=== PATIENT | male | born 1945 | race Caucasian/White ===

== ENCOUNTER 2018-03-14 11:22 | Emergency (ER) | payer MEDICARE, OTHER ==
[2018-03-14 11:24] VITALS: BMI 24.3
[2018-03-14] MEDS ORDERED: Labetalol 5 mg/ml Inj 20ML IV STA (11:29)
[2018-03-14] MEDS ORDERED: Sodium Chloride 0.9% 1,000 ML IV STA (11:40)
--- NOTE | 2018-03-14 11:52 | ED PDOC ---
Arrival/HPI - General Historian: Patient <Narendra Jaramillo - Last Filed: 03/14/18 15:36> - General Historian: Patient, Spouse - History of Present Illness Narrative History of Present Illness (Text): This is a 73 year old male with PMH of HTN, Afib on eliquis, vertigo, hyperthyroidism with thyrotoxicosis in the past, IDDM, who presents with a 3 hour history of dizziness and headache, associated with blurry vision in the right eye. Pt describes dizziness as the room spinning which started this morning as well. Pt's blood pressure measured to be 217 SBP at home, as per . gave him his daily medications, but his dizziness caused him to have one episode of nonbloody nonbilious vomiting at around 9 am. Pt's headache was gradual onset, 2-3/10, dull, nonradiating and located in the front of his head. Pt denies fever, chills, chest pain, sob, palpitations, abdominal pain, d, numbness or tingling, focal weakness, lightheadedness. PMD: Daniel Aj Cardio: Nancie Aj PMH: HTN, Afib on eliquis, CAD with 1 stent, vertigo, hyperthyroidism with thyrotoxicosis in the past, IDDM PSH: 2005 c4-6 disc fusion, 2013 stent Meds: see mar Allx: Celecoxib Time/Duration: 1-3 hours Symptom Onset: Gradual Quality: Dullness Severity Level: 3 <SagarChuy - Last Filed: 03/14/18 20:33> - General Chief Complaint: Dizziness/Lightheaded Time Seen by Provider: 03/14/18 11:24 Past Medical History - Provider Review Nursing Documentation Reviewed: Yes - Tetanus Immunization Tetanus Immunization: Unknown - Cardiac Hx Cardiac Disorders: Yes Hx Hypertension: Yes - Pulmonary Hx Respiratory Disorders: Yes Hx Asthma: No Hx Bronchitis: Yes Hx Chronic Obstructive Pulmonary Disease (COPD): Yes Hx Emphysema: Yes Hx Lung Cancer: No Hx Pneumonia: No Hx Pulmonary Edema: No Hx Pulmonary Embolism: No Hx Respiratory Aspiration: No Hx Respiratory Tract Infection: Yes Hx Sleep Apnea: Yes Hx Tuberculosis: No Other/Comment: quit smoking 30 years ago - Neurological Hx Neurological Disorder: Yes Hx Dizziness: Yes Hx Vertigo: Yes Other/Comment: lower extremity stiffness/weakness - HEENT Hx HEENT Disorder: Yes Hx Cataracts: Yes (RIGHT EYE) - Renal Hx Renal Disorder: Yes Hx Kidney Stones: Yes - Endocrine/Metabolic Hx Diabetes Mellitus Type 2: Yes - Hematological/Oncological Hx Blood Disorders: No - Integumentary Hx Dermatological Disorder: No - Musculoskeletal/Rheumatological Hx Arthritis: Yes - Gastrointestinal Hx Gastrointestinal Disorders: No - Genitourinary/Gynecological Hx Genitourinary Disorders: No - Psychiatric Hx Psychophysiologic Disorder: No Hx Substance Use: No - Surgical History Hx Coronary Stent: Yes - Anesthesia Hx Anesthesia: Yes Hx Anesthesia Reactions: No Hx Malignant Hyperthermia: No - Suicidal Assessment Feels Threatened In Home Enviroment: No <Chuy Keith - Last Filed: 03/14/18 20:33> Family/Social History - Physician Review Nursing Documentation Reviewed: Yes Family/Social History: Unknown Family HX Smoking Status: Former Smoker Hx Alcohol Use: No Hx Substance Use: No <Chuy Keith - Last Filed: 03/14/18 20:33> Allergies/Home Meds <Narendra Jaramillo - Last Filed: 03/14/18 15:36> <Chuy Keith - Last Filed: 03/14/18 20:33> Allergies/Adverse Reactions: Allergies celecoxib [From Celebrex] Allergy (Verified 03/14/18 15:11) RASH Review of Systems - Physician Review All systems were reviewed & negative as marked: Yes <Narendra Jaramillo - Last Filed: 03/14/18 15:36> - Physician Review All systems were reviewed & negative as marked: Yes - Review of Systems Constitutional: Fatigue Eyes: Vision Changes (as per HPI) ENT: Normal Respiratory: Normal Cardiovascular: Normal Gastrointestinal: Vomiting Neurological: Headache, Dizziness. absent: Focal Weakness, Speech Changes, Facial Droop Psychiatric: Normal <Chuy Keith - Last Filed: 03/14/18 20:33> Physical Exam Vital Signs Reviewed: Yes Vital Signs Temp Pulse Pulse Resp BP Pulse Ox 03/14/18 13:41 98.0 F 73 18 99 03/14/18 12:45 74 15 122/62 97 03/14/18 12:14 71 20 163/80 H 97 03/14/18 12:13 72 183/70 H 03/14/18 11:47 66 03/14/18 11:28 97.7 F 68 17 193/93 H 98 <Narendra Jaramillo - Last Filed: 03/14/18 15:36> Vital Signs Reviewed: Yes Vital Signs Temp Pulse Resp BP Pulse Ox 03/14/18 11:28 97.7 F 68 17 193/93 H 98 Temperature: Afebrile Blood Pressure: Hypertensive Pulse: Regular Respiratory Rate: Normal Appearance: Positive for: Non-Toxic, Comfortable Pain Distress: Mild Mental Status: Positive for: Alert and Oriented X 3 - Systems Exam Head: Present: Atraumatic, Normocephalic Pupils: Present: PERRL Extroacular Muscles: Present: EOMI Conjunctiva: Present: Normal Mouth: Present: Moist Mucous Membranes Neck: Present: Paraspinal Tenderness (around c7, bilaterally. (+) bilateral trapezius tenderness). No: Normal Range of Motion (limited ROM secondary to cervical disc fusion surgery), MIDLINE TENDERNESS Respiratory/Chest: Present: Clear to Auscultation. No: Wheezes, Rales, Rhonchi, Tachypneic Cardiovascular: Present: Normal S1, S2, Irregular Rhythm Abdomen: Present: Normal Bowel Sounds. No: Tenderness, Distention, Rebound, Guarding Back: Present: Normal Inspection Upper Extremity: Present: Normal Inspection, NORMAL PULSES Lower Extremity: Present: Normal Inspection, NORMAL PULSES. No: Edema, CALF TENDERNESS Neurological: Present: GCS=15, CN II-XII Intact, Motor Func Grossly Intact Skin: Present: Warm, Dry Psychiatric: Present: Alert, Oriented x 3 <Chuy Keith - Last Filed: 03/14/18 20:33> Medical Decision Making ED Course and Treatment: Patient Seen with Resident: In agreement with resident note which contains more details about the patient. Patient seen and evaluated with resident. Came up with plan and treatment together. 73 year old male presents complaining of dizziness and headache associated with blurry vision to the right eye for the past 3 hours. Plan: -- VBG -- CT Head w/o contrast -- EKG -- Labs -- IV Fluids, Ativert, Apresoline, IV Fluids, Toradol, Zofran Inj -- Reassess and disposition - Lab Interpretations Lab Results: 03/14/18 11:45 03/14/18 11:45 Lab Results 03/14/18 11:45: PT 12.8 H, INR 1.11, APTT 39.0 H 03/14/18 11:45: Free T4 1.06, TSH 3rd Generation 2.37 03/14/18 11:45: Sodium 137, Chloride 102, Potassium 3.9, Carbon Dioxide 28, Anion Gap 12, BUN 17, Creatinine 0.8, Est GFR ( Amer) > 60, Est GFR (Non- Af Amer) > 60, Random Glucose 201 H, Calcium 9.0, Magnesium 2.0, Total Bilirubin 0.4, AST 28, ALT 29, Alkaline Phosphatase 104, Troponin I < 0.01 D, Total Protein 7.3, Albumin 4.1, Globulin 3.2, Albumin/Globulin Ratio 1.3 03/14/18 11:45: pO2 67 H, VBG pH 7.36, VBG pCO2 51.0, VBG HCO3 28.8 H, VBG Total CO2 30.4 H, VBG O2 Sat (Calc) 94.4 H, VBG Base Excess 2.4 H, VBG Potassium 3.9, Sodium 136.0, Chloride 101.0, Glucose 210 H, Lactate 0.8, FiO2 21.0, Venous Blood Potassium 3.9 03/14/18 11:45: WBC 7.7, RBC 3.99, Hgb 12.0 L, Hct 36.9 L, MCV 92.5, MCH 30.1, MCHC 32.5, RDW 13.3, Plt Count 315, MPV 10.6, Gran % 73.0 H, Lymph % (Auto) 18.8 L, [place] % (Auto) 6.2 H, Eos % (Auto) 1.4 L, Baso % (Auto) 0.6, Gran # 5.63, Lymph # (Auto) 1.5, [place] # (Auto) 0.5, Eos # (Auto) 0.1, Baso # (Auto) 0.05 - RAD Interpretation Radiology Orders: 03/14/18 11:40 HEAD W/O CONTRAST [CT] Stat - Medication Orders Current Medication Orders: Discontinued Medications Hydralazine HCl (Apresoline) 10 mg IVP ONCE ONE Stop: 03/14/18 12:00 Last Admin: 03/14/18 12:13 Dose: 10 mg IVP Administration Document 03/14/18 12:13 [email or web address] (Rec: 03/14/18 12:13 [facility] [id number]) Charges for Administration # of IVP Administrations 1 MAR Pulse and Blood Pressure Document 03/14/18 12:13 [email or web address] (Rec: 03/14/18 12:13 [facility] [id number]) Pulse Pulse Rate (60-90) 72 Blood Pressure Blood Pressure (100/60-150/90) 183/70 Ketorolac Tromethamine (Toradol) 30 mg IVP STAT STA Stop: 03/14/18 12:44 Ketorolac Tromethamine (Toradol) 30 mg IVP ONCE ONE Stop: 03/14/18 13:01 Last Admin: 03/14/18 13:01 Dose: 30 mg MAR Pain Assessment Document 03/14/18 13:01 [facility] (Rec: 03/14/18 13:01 [facility] [id number]) Pain Reassessment Is this a pain reassessment? No Sleep Is patient sleeping during reassessment? No Presence of Pain Presence of Pain Yes Pain Scale Used Protocol: PSCALES Pain Scale Used Numeric Location Pain Location Body Site Neck Description Description Constant Intensity of Pain at present 6 Pain Behavior Facial Grimacing Aggravating Factors Changing Position Alleviating Factors/Management Medication Techniques Alleviating Factors Medication IVP Administration Document 03/14/18 13:01 [facility] (Rec: 03/14/18 13:[id number]) Charges for Administration # of IVP Administrations 1 Meclizine HCl (Antivert) 12.5 mg PO STAT STA Stop: 03/14/18 11:41 Last Admin: 03/14/18 11:54 Dose: 12.5 mg Ondansetron HCl (Zofran Inj) 4 mg IVP ONCE ONE Stop: 03/14/18 11:30 Last Admin: 03/14/18 11:55 Dose: 4 mg IVP Administration Document 03/14/18 11:55 [facility] (Rec: 03/14/18 11:55 [facility] [id number]) Charges for Administration # of IVP Administrations 1 <Narendra Jaramillo - Last Filed: 03/14/18 15:36> ED Course and Treatment: Hypertensive male on eliquis for Afib with complaints of dizziness, n/v, headache and blurry vision. Will treat BP with hydralazine. Pt has history of vertigo, will give Meclizine. Zofran for nausea. CBC, CMP, Mag, Phos, PT/PTT/INR, Head CT, EKG, troponin, TSH/T4. Will re-eval. 03/14/18 12:29 Pt complaining of neck pain, which he has been dealing with for the past 3 days. 7/10, nonradiating, sharp, located in the bilateral trapezius. Usually relieved by pinching the muscle with his hands. Headache has improved, blurry vision has resolved. Denies nausea. No episodes of vomiting in the ED so far. Repeat BP 163/80, not tachycardic or tachypneic. 03/14/18 13:37 Repeat BP is 122/62. Not tachycardic. Dizziness, blurry vision, nausea are resolved. Neck pain is improved. Re-evaluation Time: 13:20 Reassessment Condition: Re-examined, Improved - Lab Interpretations I have reviewed the lab results: Yes - RAD Interpretation Narrative RAD Interpretations (Text): 03/14/18 12:19 Accession No. : [id number] Patient Name / ID : FREDA YOON / [id number] Exam Date : 03/14/2018 11:58:58 ( Approved ) Study Comment : Sex / Age : M / 73Y Creator : Rishi Carpenter MD Dictator : Rishi Carpenter MD Mathematics Lecturer : Visual Coordinator : Rishi Carpenter MD Approver2 : Report Date : 03/14/2018 12:11:16 My Comment : Date of service: 03/14/2018 PROCEDURE: CT HEAD WITHOUT CONTRAST. HISTORY: headache COMPARISON: None available. TECHNIQUE: Axial computed tomography images were obtained through the head/brain without intravenous contrast. Radiation dose: Total exam DLP = 942.9 mGy-cm. This CT exam was performed using one or more of the following dose reduction techniques: Automated exposure control, adjustment of the mA and/or kV according to patient size, and/or use of iterative reconstruction technique. FINDINGS: HEMORRHAGE: No intracranial hemorrhage. BRAIN: Good corticomedullary differentiation is seen. Proportional, diffuse expansion of the ventriculosulcal and cisternal spaces is appreciated with white matter lucency compatible with diffuse cerebral atrophy and chronic microangiopathy. There are a few scattered chronic lacunes identified including the right frontal lobe and left basal ganglia/external capsule. No suspicious extra-axial fluid collection is identified and the midline brain anatomy appears grossly nonfocal as imaged. There is no mass effect throughout. VENTRICLES: Unremarkable. No hydrocephalus. CALVARIUM: Unremarkable. PARANASAL SINUSES: Unremarkable as visualized. No significant inflammatory changes. MASTOID AIR CELLS: Unremarkable as visualized. No inflammatory changes. OTHER FINDINGS: None. IMPRESSION: No definite acute intracranial findings by standard CT criteria. Clinically correlate further. Age related neuro degenerative findings appear age- appropriate. A few chronic lacunes are identified. Radiology Orders: 03/14/18 11:40 HEAD W/O CONTRAST [CT] Stat [employer] Ch[employer] Director: Radiologist - EKG Interpretation EKG Interpretation (Text): EKG shows NSR at 68 no acute STTW changes; AZ is 166, QTc is 431; as read by ED attending Interpreted by ED Physician: Yes - Medication Orders Current Medication Orders: Sodium Chloride (Sodium Chloride 0.9%) 1,000 mls @ 999 mls/hr IV .Q1H1M STA Stop: 03/14/18 12:40 Discontinued Medications Meclizine HCl (Antivert) 12.5 mg PO STAT STA Stop: 03/14/18 11:41 Ondansetron HCl (Zofran Inj) 4 mg IVP ONCE ONE Stop: 03/14/18 11:30 <Chuy Keith - Last Filed: 03/14/18 20:33> - PA / FLORIST DESIGNER / Resident Statement MD/DO has reviewed & agrees with the documentation as recorded. - Scribe Statement The provider has reviewed the documentation as recorded by the Jose Martin Provider Scribe Attestation: All medical record entries made by the Jose were at my direction and personally dictated by me. I have reviewed the chart and agree that the record accurately reflects my personal performance of the history, physical exam, medical decision making, and the department course for this patient. I have also personally directed, reviewed, and agree with the discharge instructions and disposition. <Narendra Jaramillo - Last Filed: 03/14/18 15:36> Disposition/Present on Arrival <Narendra Jaramillo - Last Filed: 03/14/18 15:36> - Present on Arrival Any Indicators Present on Arrival: No History of DVT/PE: No History of Uncontrolled Diabetes: No Urinary Catheter: No History of Decub. Ulcer: No History Surgical Site Infection Following: None - Disposition Have Diagnosis and Disposition been Completed?: Yes Disposition Time: 13:36 Patient Plan: Discharge <Chuy Keith - Last Filed: 03/14/18 20:33> - Disposition Diagnosis: Dizziness, Hypertension, Musculoskeletal neck pain Disposition: HOME/ ROUTINE Patient Problems: Current Active Problems Problem Status Onset Dizziness Acute Hypertensive urgency Acute Condition: GOOD Prescriptions: Meclizine [Antivert] 12.5 mg PO PRN PRN #6 tab PRN Reason: Motion Sickness
[2018-03-14 12:01] LABS: VENOUS BLOOD GAS BASE EXCESS 2.4 mmol/L (0.0-2.0); VENOUS BLOOD GAS PO2 67 mm/Hg (30-55); VENOUS BLOOD PH 7.36 (7.32-7.43)
[2018-03-14 12:09] LABS: BASO # 0.05 K/mm3 (0.0-2.0); BASO % 0.6 % (0.0-3.0); EOS # 0.1 (0.0-0.7); EOS % 1.4 % (1.5-5.0); GRAN # 5.63 (1.4-6.5); INR 1.11; LYMPH # 1.5 (1.2-3.4); LYMPH % 18.8 % (22.0-35.0); MEAN CELL VOLUME 92.5 fl (80.0-105.0); MEAN CORPUSCULAR HEMOGLOBIN 30.1 pg (25.0-35.0); MEAN CORPUSCULAR HGB CONC 32.5 g/dl (31.0-37.0); MEAN PLATELET VOLUME 10.6 fl (7.0-11.0); MONO # 0.5 (0.1-0.6); MONO % 6.2 % (1.0-6.0); PROTHROMBIN TIME 12.8 SECONDS (9.4-12.5); RBC 3.99 10^6/uL (3.5-6.1); RED CELL DISTRIBUTION WIDTH 13.3 % (11.5-14.5); WHITE BLOOD COUNT 7.7 10^3/uL (4.5-11.0)
[2018-03-14 12:11] LABS: ALB/GLOB RATIO 1.3 (1.1-1.8); ALBUMIN 4.1 g/dL (3.0-4.8); ALT/SGPT 29 U/L (7-56); AST/SGOT 28 U/L (17-59); BLOOD UREA NITROGEN 17 mg/dL (7-21); GFR NON-AFRICAN AMERICAN > 60
--- NOTE | 2018-03-14 12:15 | CT ---
Date of service: 03/14/2018 PROCEDURE: CT HEAD WITHOUT CONTRAST. HISTORY: headache COMPARISON: None available. TECHNIQUE: Axial computed tomography images were obtained through the head/brain without intravenous contrast. Radiation dose: Total exam DLP = 942.9 mGy-cm. This CT exam was performed using one or more of the following dose reduction techniques: Automated exposure control, adjustment of the mA and/or kV according to patient size, and/or use of iterative reconstruction technique. FINDINGS: HEMORRHAGE: No intracranial hemorrhage. BRAIN: Good corticomedullary differentiation is seen. Proportional, diffuse expansion of the ventriculosulcal and cisternal spaces is appreciated with white matter lucency compatible with diffuse cerebral atrophy and chronic microangiopathy. There are a few scattered chronic lacunes identified including the right frontal lobe and left basal ganglia/external capsule. No suspicious extra-axial fluid collection is identified and the midline brain anatomy appears grossly nonfocal as imaged. There is no mass effect throughout. VENTRICLES: Unremarkable. No hydrocephalus. CALVARIUM: Unremarkable. PARANASAL SINUSES: Unremarkable as visualized. No significant inflammatory changes. MASTOID AIR CELLS: Unremarkable as visualized. No inflammatory changes. OTHER FINDINGS: None. IMPRESSION: No definite acute intracranial findings by standard CT criteria. Clinically correlate further. Age related neuro degenerative findings appear age-appropriate. A few chronic lacunes are identified.
[2018-03-14 12:22] LABS: TROPONIN I < 0.01 ng/mL
[2018-03-14 12:28] LABS: FREE T4 1.06 ng/dL (0.78-2.19)
[2018-03-14 12:46] VITALS: BP 122/62
[2018-03-14 13:44] VITALS: PULSE 73; RESP 18; TEMP 98; O2SAT 99
--- NOTE | 2018-03-14 18:30 | CARD ---
APPROVED REPORT Date of service: 03/14/2018 EKG Measurement Heart [id number] <Conclusion> Normal sinus rhythm Normal ECG
== END 2018-03-14 13:44 | disposition home or self-care (01) ==
LOC: ED 11:22 → ERH 14:36 → UNDOADMOB 14:36
DX: I10 Essential (primary) hypertension (principal); M54.2 Cervicalgia; R42 Dizziness and giddiness; I48.91 Unspecified atrial fibrillation; E11.9 Type 2 diabetes mellitus without complications; Z79.4 Long term (current) use of insulin; Z79.01 Long term (current) use of anticoagulants; I25.10 Atherosclerotic heart disease of native coronary artery without angina pectoris; E05.90 Thyrotoxicosis, unspecified without thyrotoxic crisis or storm; Z87.891 Personal history of nicotine dependence
CPT/HCPCS: 70450; 80053; 82803; 83735; 84439; 84443; 84484; 85025; 85610; 85730; 93005; 96374; 96375; 99285; J0360; J1885; J2405

== ENCOUNTER 2018-03-14 14:06 | Observation (INO) | payer MEDICARE, OTHER ==
[2018-03-14 14:08] VITALS: BMI 25.8
--- NOTE | 2018-03-14 14:46 | ED PDOC ---
Arrival/HPI <Narendra Jaramillo - Last Filed: 03/14/18 20:11> - General Historian: Patient, Spouse - History of Present Illness Narrative History of Present Illness (Text): Pt was was feeling better on re-evaluation, and discharged from the ER. Pt's symptoms of dizziness returned while he was walking to the door. Please see previous ED note for full HPI. Pt will be placed on obs tele. Time/Duration: 1-3 hours Symptom Onset: Sudden Symptom Course: Worsening <Chuy Keith - Last Filed: 03/14/18 20:40> - General Chief Complaint: Dizziness/Lightheaded Time Seen by Provider: 03/14/18 14:20 Past Medical History - Provider Review Nursing Documentation Reviewed: Yes - Tetanus Immunization Tetanus Immunization: Unknown - Cardiac Hx Cardiac Disorders: Yes Hx Hypertension: Yes - Pulmonary Hx Respiratory Disorders: Yes Hx Asthma: No Hx Bronchitis: Yes Hx Chronic Obstructive Pulmonary Disease (COPD): Yes Hx Emphysema: Yes Hx Lung Cancer: No Hx Pneumonia: No Hx Pulmonary Edema: No Hx Pulmonary Embolism: No Hx Respiratory Aspiration: No Hx Respiratory Tract Infection: Yes Hx Sleep Apnea: Yes Hx Tuberculosis: No Other/Comment: quit smoking 30 years ago - Neurological Hx Neurological Disorder: Yes Hx Dizziness: Yes Hx Vertigo: Yes Other/Comment: lower extremity stiffness/weakness - HEENT Hx HEENT Disorder: Yes Hx Cataracts: Yes (RIGHT EYE) - Renal Hx Renal Disorder: Yes Hx Kidney Stones: Yes - Endocrine/Metabolic Hx Diabetes Mellitus Type 2: Yes - Hematological/Oncological Hx Blood Disorders: No - Integumentary Hx Dermatological Disorder: No - Musculoskeletal/Rheumatological Hx Arthritis: Yes - Gastrointestinal Hx Gastrointestinal Disorders: No - Genitourinary/Gynecological Hx Genitourinary Disorders: No - Psychiatric Hx Psychophysiologic Disorder: No Hx Substance Use: No - Surgical History Hx Coronary Stent: Yes - Anesthesia Hx Anesthesia: Yes Hx Anesthesia Reactions: No Hx Malignant Hyperthermia: No - Suicidal Assessment Feels Threatened In Home Enviroment: No <Chuy Keith - Last Filed: 03/14/18 20:40> Family/Social History - Physician Review Nursing Documentation Reviewed: Yes Family/Social History: Unknown Family HX Smoking Status: Former Smoker Hx Alcohol Use: No Hx Substance Use: No <Chuy Keith - Last Filed: 03/14/18 20:40> Allergies/Home Meds <Narendra Jaramillo - Last Filed: 03/14/18 20:11> <[email or web address] - Filed: 03/14/18 20:40> Allergies/Adverse Reactions: Allergies celecoxib [From Celebrex] Allergy (Verified 03/14/18 15:11) RASH Review of Systems - Physician Review All systems were reviewed & negative as marked: Yes (see previous note) <Narendra Jaramillo - Filed: 03/14/18 20:11> - Review of Systems Constitutional: Fatigue Eyes: Vision Changes ENT: Normal Respiratory: Normal Cardiovascular: Normal Gastrointestinal: Nausea, Vomiting Genitourinary Male: Normal Musculoskeletal: Normal Neurological: Normal Psychiatric: Normal <Chuy Keith Filed: 03/14/18 20:40> Physical Exam Vital Signs Reviewed: Yes Vital Signs Temp Pulse Resp BP Pulse Ox 03/14/18 15:40 98.9 F 71 18 99 03/14/18 15:20 69 18 137/81 97 03/14/18 14:16 98.5 F 73 18 135/68 97 <Narendra Jaramillo - Filed: 03/14/18 20:11> Vital Signs Reviewed: Yes Vital Signs Temp Pulse Resp BP Pulse Ox 03/14/18 14:16 98.5 F 73 18 135/68 97 Temperature: Afebrile Blood Pressure: Normal Pulse: Regular Respiratory Rate: Normal Appearance: Positive for: Well-Appearing, Non-Toxic Pain Distress: None Mental Status: Positive for: Alert and Oriented X 3 Finger Stick Blood Glucose: 166 - Systems Exam Head: Present: Atraumatic, Normocephalic Pupils: Present: PERRL Extroacular Muscles: Present: EOMI Conjunctiva: Present: Normal Mouth: Present: Moist Mucous Membranes Neck: Present: Normal Range of Motion Respiratory/Chest: Present: Clear to Auscultation Cardiovascular: Present: Regular Rate and Rhythm, Normal S1, S2 Abdomen: No: Tenderness, Distention Upper Extremity: Present: Normal Inspection, NORMAL PULSES Lower Extremity: Present: Normal Inspection, NORMAL PULSES Neurological: Present: GCS=15, CN II-XII Intact, Speech Normal, Motor Func Grossly Intact Skin: Present: Warm, Dry Psychiatric: Present: Alert, Oriented x 3 <Chuy Keith - Last Filed: 03/14/18 20:40> Medical Decision Making ED Course and Treatment: 03/14/18 Patient Seen with Resident: In agreement with resident note which contains more details about the patient. Patient seen and evaluated with resident. Came up with plan and treatment together. Impression: 73 year old male who has returned to Emergency department after being discharged due to his symptoms returning. Plan: Patient will be admitted for observation tele. - Medication Orders Current Medication Orders: Apixaban (Eliquis) 5 mg PO BID [facility]; Protocol Last Admin: 03/14/18 17:21 Dose: 5 mg Atorvastatin Calcium (Lipitor) 20 mg PO DAILY [facility] Last Admin: 03/14/18 17:21 Dose: 20 mg Dextrose (Dextrose 50% Inj) 0 ml IV STAT PRN; Protocol PRN Reason: Hypoglycemia Protocol Famotidine (Pepcid) 20 mg PO 1000,2200 PRN PRN Reason: Heart rate Gabapentin (Neurontin) 300 mg PO BID [facility]; Protocol Last Admin: 03/14/18 17:20 Dose: 300 mg Behavioural Document 03/14/18 17:20 KMS (Rec: 03/14/18 17:21 K[id number] Maintenance Maintenance Dose Yes Heparin Sodium (Porcine) (Heparin) 5,000 units SC Q8 DANE; Protocol Sodium Chloride (Sodium Chloride 0.45%) 1,000 mls @ 150 mls/hr IV .Q6H40M DANE Stop: 03/14/18 21:54 Last Admin: 03/14/18 15:28 Dose: 150 mls/hr eMAR Start Stop Document 03/14/18 15:28 [email or web address] (Rec: 03/14/18 15:28 [email or web address] [id number]) Intravenous Solution Start Date 03/14/18 Start Time 15:28 Dextrose (Dextrose 5% In Water 1000 Ml) 1,000 mls @ 0 mls/hr IV .Q0M PRN; Prot ocol PRN Reason: Hypoglycemia Protocol Insulin Human Regular (Humulin R High) 0 units SC ACHS [facility]; Protocol Last Admin: 03/14/18 17:22 Dose: Not Given Non-Admin Reason: Blood Sugar Parameter MAR Blood Glucose Document 03/14/18 17:22 KMS (Rec: 03/14/18 17:22 KMS [facility] [id number] Blood Glucose Finger Stick Blood Glucose (70-120) 111 Meclizine HCl (Antivert) 12.5 mg PO DAILY PRN PRN Reason: Dizziness Methimazole (Tapazole) 10 mg PO BID [facility] Last Admin: 03/14/18 17:21 Dose: 10 mg Propranolol HCl (Inderal La) 60 mg PO Q8H [facility] Last Admin: 03/14/18 17:21 Dose: 60 mg MAR Pulse and Blood Pressure Document 03/14/18 17:21 KMS (Rec: 03/14/18 17:21 KMS [facility] [id number] Pulse Pulse Rate (60-90) 83 Blood Pressure Blood Pressure (100/60-150/90) 138/75 Valsartan (Diovan) 160 mg PO DAILY [facility] Last Admin: 03/14/18 17:21 Dose: 160 mg <Narendra Jaramillo - Last Filed: 03/14/18 20:11> - Scribe Statement The provider has reviewed the documentation as recorded by the Scribe Elvin Westfall Provider Scribe Attestation: All medical record entries made by the Scribe were at my direction and personally dictated by me. I have reviewed the chart and agree that the record accurately reflects my personal performance of the history, physical exam, medical decision making, and the department course for this patient. I have also personally directed, reviewed, and agree with the discharge instructions and disposition. <Narendra Jaramillo - Last Filed: 03/14/18 20:11> Disposition/Present on Arrival <Narendra Jaramillo - Last Filed: 03/14/18 20:11> - Present on Arrival Any Indicators Present on Arrival: No History of DVT/PE: No History of Uncontrolled Diabetes: No Urinary Catheter: No History of Decub. Ulcer: No History Surgical Site Infection Following: None - Disposition Have Diagnosis and Disposition been Completed?: Yes Disposition Time: 14:36 Patient Plan: Observation (tele), Telemetry <Chuy Keith - Last Filed: 03/14/18 20:40> - Disposition Diagnosis: Dizziness, Hypertensive urgency Disposition: HOSPITALIZED Patient Problems: Current Active Problems Problem Status Onset Dizziness Acute Hypertensive urgency Acute Condition: STABLE
[2018-03-14] MEDS ORDERED: Sodium Chloride 0.45% 1,000 ML IV SCH (15:15)
--- NOTE | 2018-03-14 15:25 | CP.PCM.HP ---
<Myke Bateman - Last Filed: 03/14/18 16:00> History of Present Illness - History of Present Illness History of Present Illness: PGY-1 H&P Medicine Note Patient is a 73 year old male with past medical history of hypertension, afib on eliquis, vertigo (last vertigo spell 2 months ago, per patient), hyperthyroidism with thyrotoxicosis in the past, IDDM presenting to ED with worsening dizziness and headache that began this morning. Patient states he woke up this morning feeling dizzy, describing it as the room spinning , with 2 episodes of NBNB vomiting and associated lightheadedness. Patient denies any falls or LOC, but states he felt like he was going to pass out. Per , patient's SBP at home prior to arrival was 217, blood glucose level was 166. Patient also endorses gradual localized frontal headache, 2/10. No fevers/chills, chest pain, palpitations, sob, cough, abdominal pain, focal weakness, numbness or tingling. PMHx: hypertension, afib on eliquis, vertigo (last vertigo spell 2 months ago, per patient), hyperthyroidism with thyrotoxicosis in the past, IDDM PSHx: C4-6 disc fusion (2005), stent (2013) Allergies: celecoxib (rash) Home Medications: Eliquis 5mg PO BID, Symbicort, Ventolin, Rasuvastatin 10 mg PO Daily, Valsartan 160 mg PO Daily, Hydralazine 25 mg PO daily, Propanolol 60 mg PO q8, Methimazole 10 mg PO BID, Tresiba 20 units daily, Naproxen 500 mg PO BID, Neurontin 300 mg PO q12, Pepcid 20 mg PO BID Social Hx: no tobacco or illicit drug use; social drinker--wine FHx: noncontributory PMD: Daniel Aj Plant Maintenance Engineer: Nancie Aj Present on Admission - Present on Admission Any Indicators Present on Admission: No Review of Systems - Constitutional Constitutional: Headache. absent: Chills, Fever - EENT Eyes: absent: Change in Vision - Cardiovascular Cardiovascular: Lightheadedness. absent: Chest Pain, Diaphoresis, Dyspnea, Palpitations, Pedal Edema, Syncope - Respiratory Respiratory: absent: Cough, Dyspnea, Wheezing, Stridor - Gastrointestinal Gastrointestinal: Constipation, Nausea, Vomiting (2 episodes this AM prior to arrival). absent: Abdominal Pain, Diarrhea - Genitourinary Genitourinary: absent: Difficulty Urinating, Dysuria - Musculoskeletal Musculoskeletal: absent: Arthralgias, Limited Range of Motion - Neurological Neurological: Disequilibrium, Dizziness, Headaches, Vertigo. absent: Confusion, Numbness, Focal Weakness, Frequent Falls, Loss of Vision, Syncope, Tingling, Weakness - Psychiatric Psychiatric: absent: Anxiety, Confusion, Depression Past Patient History - Tetanus Immunizations Tetanus Immunization: Unknown - Past Medical History & Family History Past Medical History?: Yes - Past Social History Smoking Status: Former Smoker - CARDIAC Hx Cardiac Disorders: Yes Hx Hypertension: Yes - PULMONARY Hx Respiratory Disorders: Yes Hx Asthma: No Hx Bronchitis: Yes Hx Chronic Obstructive Pulmonary Disease (COPD): Yes Hx Emphysema: Yes Hx Lung Cancer: No Hx Pneumonia: No Hx Pulmonary Edema: No Hx Pulmonary Embolism: No Hx Respiratory Aspiration: No Hx Respiratory Tract Infection: Yes Hx Sleep Apnea: Yes Hx Tuberculosis: No Other/Comment: quit smoking 30 years ago - NEUROLOGICAL Hx Neurological Disorder: Yes Hx Dizziness: Yes Hx Vertigo: Yes Other/Comment: lower extremity stiffness/weakness - HEENT Hx HEENT Problems: Yes Hx Cataracts: Yes (RIGHT EYE) - RENAL Hx Chronic Kidney Disease: Yes Hx Kidney Stones: Yes - ENDOCRINE/METABOLIC Hx Diabetes Mellitus Type 2: Yes - HEMATOLOGICAL/ONCOLOGICAL Hx Blood Disorders: No - INTEGUMENTARY Hx Dermatological Problems: No - MUSCULOSKELETAL/RHEUMATOLOGICAL Hx Arthritis: Yes - GASTROINTESTINAL Hx Gastrointestinal Disorders: No - GENITOURINARY/GYNECOLOGICAL Hx Genitourinary Disorders: No - PSYCHIATRIC Hx Psychophysiologic Disorder: No Hx Substance Use: No - SURGICAL HISTORY Hx Coronary Stent: Yes - ANESTHESIA Hx Anesthesia: Yes Hx Anesthesia Reactions: No Hx Malignant Hyperthermia: No Meds Allergies/Adverse Reactions: Allergies Allergy/AdvReac Type Severity Reaction Status Date / Time celecoxib [From Celebrex] Allergy RASH Verified 03/14/18 15:11 Physical Exam - Constitutional Appears: Non-toxic, No Acute Distress - Head Exam Head Exam: ATRAUMATIC, NORMAL INSPECTION, NORMOCEPHALIC - Eye Exam Eye Exam: EOMI, Normal appearance Pupil Exam: NORMAL ACCOMODATION - ENT Exam ENT Exam: Mucous Membranes Moist, Normal Exam - Neck Exam Neck exam: Positive for: Normal Inspection - Respiratory Exam Respiratory Exam: Clear to Auscultation Bilateral, NORMAL BREATHING PATTERN. absent: Rales, Rhonchi, Wheezes, Respiratory Distress, Stridor - Cardiovascular Exam Cardiovascular Exam: REGULAR RHYTHM, +S1, +S2 - GI/Abdominal Exam GI & Abdominal Exam: Normal Bowel Sounds, Soft. absent: Distended, Firm, Guarding, Rebound, Rigid, Tenderness - Back Exam Back exam: NORMAL INSPECTION - Neurological Exam Neurological exam: Alert, CN II-XII Intact, Oriented x3 - Psychiatric Exam Psychiatric exam: Normal Affect, Normal Mood - Skin Skin Exam: Dry, Intact, Normal Color, Warm Results - Vital Signs Recent Vital Signs: Last Vital Signs Temp 98.5 F 03/14/18 14:16 Pulse 73 03/14/18 14:16 Resp 18 03/14/18 14:16 BP 135/68 03/14/18 14:16 Pulse Ox 97 03/14/18 14:16 Assessment & Plan - Assessment and Plan (Free Text) Assessment: 73 yo M with PMHx of hypertension, afib on eliquis, vertigo (last vertigo spell 2 months ago, per patient), hyperthyroidism with thyrotoxicosis in the past, IDDM presenting to ED with worsening dizziness and headache that began this morning. Plan: Dizziness, Weakness -likely 2/2 orthostatic hypotension -NS @ 150cc/hr -orthostatic vitals qshift -morning labs -physical therapy eval and tx -observe Hx Vertigo -continue home antivert HTN -BP 193/93 on arrival to ED -currently 137/81 -c/w home valsartan, propanolol -home hydralazine held Hyperthyroidism -TSH/Free T4 wnl -c/w home methimazole IDDM -takes home Tresiba 20 units daily -ISS high dose -accuchecks -hypoglycemic protocol PPx, Diet, Disposition -DVT: heparin, scds -GI: pepcid -Diet: HHD Case discussed with Dr. Sammy Bateman DO, PGY-1 <Christine Christianson - Last Filed: 03/15/18 07:46> Results - Vital Signs Recent Vital Signs: Last Vital Signs Temp 97.7 F 03/15/18 06:00 Pulse 75 03/15/18 06:00 Resp 20 03/15/18 06:00 BP 159/82 H 03/15/18 06:00 Pulse Ox 99 03/15/18 06:00 - Labs Result Diagrams: 03/15/18 06:00 03/15/18 06:00 Labs: Laboratory Results - last 24 hr 03/14/18 03/14/18 03/14/18 14:18 17:08 21:53 WBC RBC Hgb Hct MCV MCH MCHC RDW Plt Count MPV Sodium Potassium Chloride Carbon Dioxide Anion Gap BUN Creatinine Est GFR ( Amer) Est GFR (Non-Af Amer) POC Glucose (mg/dL) 166 H 111 H 176 H Random Glucose Calcium Total Bilirubin AST ALT Alkaline Phosphatase Total Protein Albumin Globulin Albumin/Globulin Ratio 03/15/18 03/15/18 06:00 06:00 WBC 6.5 RBC 3.79 Hgb 11.4 L Hct 35.3 L MCV 93.1 MCH 30.1 MCHC 32.3 RDW 13.7 Plt Count 322 MPV 10.7 Sodium 138 Potassium 3.9 Chloride 106 Carbon Dioxide 28 Anion Gap 7 L BUN 17 Creatinine 0.9 Est GFR ( Amer) > 60 Est GFR (Non-Af Amer) > 60 POC Glucose (mg/dL) Random Glucose 139 H Calcium 9.1 Total Bilirubin 0.4 AST 24 ALT 29 Alkaline Phosphatase 87 Total Protein 6.4 Albumin 3.7 Globulin 2.7 Albumin/Globulin Ratio 1.3 Attending/Attestation - Attestation I have personally seen and examined this patient.: Yes I have fully participated in the care of the patient.: Yes I have reviewed all pertinent clinical information: Yes Notes (Text): 03/15/18 07:41 Medical record note made by the resident after discussion with my direction and input after the patient was personally seen and examined by me. I have reviewed the chart and agree that the record accurately reflects by personal performance of the history, physical exam, data review, and medical decision-making, in the course for the patient. I have also personally directed the plan of care. 73 year old male with past medical history of hypertension, AF on oral anticoagulation with Apixiban, , hyperthyroidism , IDDM is admitted with ve rtigo associated with standing , likely due to orthostatic hypotension. CT head is negative.There is no focal deficit.We will check orthostasis, We will monitor Neuro check and will get Physical therapy evaluation. Management plan was discussed in detail with patient. Education was provided.
[2018-03-14] MEDS ORDERED: Dextrose 50% SYRINGE Inj (50 ml) IV PRN (15:35)
[2018-03-14] MEDS: Propranolol 60 mg ER Cap PO SCH ×2 (17:21→23:40)
[2018-03-14] MEDS: Insulin Reg-HIGH-Coverage SC SCH ×2 (17:22→21:54)
[2018-03-14] MEDS ORDERED: Pneumococcal 23-Valent Vaccine IM ONE (18:32)
[2018-03-14] MEDS ORDERED: Influenza Vaccine 60 mcg/0.5 mL SYR (4YR UP) IM ONE (18:32)
[2018-03-15 06:12] VITALS: O2SAT 99
[2018-03-15 07:09] LABS: HEMOGLOBIN 11.4 g/dL (14.0-18.0); MEAN CELL VOLUME 93.1 fl (80.0-105.0); MEAN CORPUSCULAR HEMOGLOBIN 30.1 pg (25.0-35.0); MEAN CORPUSCULAR HGB CONC 32.3 g/dl (31.0-37.0); MEAN PLATELET VOLUME 10.7 fl (7.0-11.0); RBC 3.79 10^6/uL (3.5-6.1); RED CELL DISTRIBUTION WIDTH 13.7 % (11.5-14.5); WHITE BLOOD COUNT 6.5 10^3/uL (4.5-11.0)
[2018-03-15 07:29] LABS: ALB/GLOB RATIO 1.3 (1.1-1.8); ALBUMIN 3.7 g/dL (3.0-4.8); ALT/SGPT 29 U/L (7-56); AST/SGOT 24 U/L (17-59); BLOOD UREA NITROGEN 17 mg/dL (7-21); CALCIUM 9.1 mg/dL (8.4-10.5); GFR NON-AFRICAN AMERICAN > 60
[2018-03-15] MEDS: Insulin Reg-HIGH-Coverage SC SCH ×2 (08:32→12:32)
[2018-03-15] MEDS: Propranolol 60 mg ER Cap PO SCH (09:37)
--- NOTE | 2018-03-15 13:30 | CP.PCM.DIS ---
<Myke Bateman - Last Filed: 03/15/18 13:24> Provider - Provider Date of Admission: 03/14/18 14:36 Attending physician: Christine Christianson MD Time Spent in preparation of Discharge (in minutes): 40 Hospital Course - Lab Results Lab Results: Most Recent Lab Values WBC 6.5 10^3/uL (4.5-11.0) 03/15/18 06:00 RBC 3.79 10^6/uL (3.5-6.1) 03/15/18 06:00 Hgb 11.4 g/dL (14.0-18.0) L 03/15/18 06:00 Hct 35.3 % (42.0-52.0) L 03/15/18 06:00 MCV 93.1 fl (80.0-105.0) 03/15/18 06:00 MCH 30.1 pg (25.0-35.0) 03/15/18 06:00 MCHC 32.3 g/dl (31.0-37.0) 03/15/18 06:00 RDW 13.7 % (11.5-14.5) 03/15/18 06:00 Plt Count 322 10^3/uL (120.0-450.0) 03/15/18 06:00 MPV 10.7 fl (7.0-11.0) 03/15/18 06:00 Sodium 138 mmol/L (132-148) 03/15/18 06:00 Potassium 3.9 mmol/L (3.6-5.0) 03/15/18 06:00 Chloride 106 mmol/L (98-107) 03/15/18 06:00 Carbon Dioxide 28 mmol/L (21-33) 03/15/18 06:00 Anion Gap 7 (10-20) L 03/15/18 06:00 BUN 17 mg/dL (7-21) 03/15/18 06:00 Creatinine 0.9 mg/dl (0.8-1.5) 03/15/18 06:00 Est GFR ( Amer) > 60 03/15/18 06:00 Est GFR (Non-Af Amer) > 60 03/15/18 06:00 POC Glucose (mg/dL) 171 mg/dL (65-110) H 03/15/18 12:04 Random Glucose 139 mg/dL (70-110) H 03/15/18 06:00 Calcium 9.1 mg/dL (8.4-10.5) 03/15/18 06:00 Total Bilirubin 0.4 mg/dL (0.2-1.3) 03/15/18 06:00 AST 24 U/L (17-59) 03/15/18 06:00 ALT 29 U/L (7-56) 03/15/18 06:00 Alkaline Phosphatase 87 U/L (38-126) 03/15/18 06:00 Total Protein 6.4 g/dL (5.8-8.3) 03/15/18 06:00 Albumin 3.7 g/dL (3.0-4.8) 03/15/18 06:00 Globulin 2.7 gm/dL 03/15/18 06:00 Albumin/Globulin Ratio 1.3 (1.1-1.8) 03/15/18 06:00 - Hospital Course Hospital Course: HPI: Patient is a 73 year old male with past medical history of hypertension, atrial fibrillation on eliquis, vertigo (last vertigo spell 2 months ago, per patient), hyperthyroidism with thyrotoxicosis in the past, insulin-dependent diabetes mellitus who presented to ED on 03/14/18 with worsening dizziness and headache that began in the morning. Patient stated he woke up this morning feeling dizzy, describing it as the room spinning , with 2 episodes of non-bloody, non-bilious vomiting and associated lightheadedness. Patient denied any falls or loss of consciousness, but stated he felt like he was going to pass out. Per , patient's systolic blood pressure at home prior to arrival was 217, blood glucose level was 166. Patient also endorsed gradual localized frontal headache, 2/10. No fevers/chills, chest pain, palpitations, sob, cough, abdominal pain, focal weakness, numbness or tingling. During the course of admission: Head CT was negative. Patient did not endorse return of symptoms. He was afebrile, normotensive without leukocytosis. Patient was started on IV fluids, his home hydralazine was held. Patient'ss symptoms completely resolved. His symptoms are likely from orthostatic hypotension. He was stable for discharge per Dr. Christianson and will be discharged home on his home medications. Patient was advised to sit up slowly and wait a few minutes before standing and to wait for a few minutes before ambulating. Patient was also informed to return to the nearest ED should his symptoms return and to follow up with his primary care provider for continued care and evaluation. Patient and his voiced understanding and were in agreement with the plans. The following is a summary of hospital course. For further detail, please refer to EMR. - Date & Time of H&P Date of H&P: 03/15/18 Time of H&P: 13:24 Discharge Exam - Head Exam Head Exam: ATRAUMATIC, NORMAL INSPECTION, NORMOCEPHALIC - Eye Exam Eye Exam: EOMI, Normal appearance Pupil Exam: NORMAL ACCOMODATION - ENT Exam ENT Exam: Mucous Membranes Moist, Normal Exam - Neck Exam Neck exam: Full Rom - Respiratory Exam Respiratory Exam: Clear to PA & Lateral, NORMAL BREATHING PATTERN, UNREMARKABLE. absent: Rales, Rhonchi, Wheezes, Respiratory Distress, Stridor - Cardiovascular Exam Cardiovascular Exam: REGULAR RHYTHM, +S1, +S2 - GI/Abdominal Exam GI & Abdominal Exam: Normal Bowel Sounds, Soft, Unremarkable. absent: Distended, Firm, Guarding, Hernia, Rebound, Rigid, Tenderness - Extremities Exam Extremities exam: full ROM, normal capillary refill, normal inspection, pedal pulses present - Back Exam Back exam: NORMAL INSPECTION - Neurological Exam Neurological exam: Alert, CN II-XII Intact, Oriented x3, Reflexes Normal - Psychiatric Exam Psychiatric exam: Normal Affect, Normal Mood - Skin Skin Exam: Dry, Intact, Normal Color, Warm Discharge Plan - Follow Up Plan Condition: STABLE Disposition: HOME/ ROUTINE Instructions: Vertigo (a Type of Dizziness) (DC), Hypertension (DC) Additional Instructions: Patient is medically stable for discharge, per Dr. Christianson. He is instructed to continue all home medications as currently prescribed. Please continue home Tresiba regimen for management of diabetes. Please follow up with your primary care provider within 1 week of discharge for continued care and evaluation. If symptoms worsen, please return to the ED. Referrals: Don Aj MD [Family Provider] - Christine Christianson MD [Staff Provider] - <Christine Christianson - Last Filed: 03/15/18 15:46> Provider - Provider Date of Admission: 03/14/18 14:36 Attending physician: Christine Christianson MD Hospital Course - Lab Results Lab Results: Most Recent Lab Values WBC 6.5 10^3/uL (4.5-11.0) 03/15/18 06:00 RBC 3.79 10^6/uL (3.5-6.1) 03/15/18 06:00 Hgb 11.4 g/dL (14.0-18.0) L 03/15/18 06:00 Hct 35.3 % (42.0-52.0) L 03/15/18 06:00 MCV 93.1 fl (80.0-105.0) 03/15/18 06:00 MCH 30.1 pg (25.0-35.0) 03/15/18 06:00 MCHC 32.3 g/dl (31.0-37.0) 03/15/18 06:00 RDW 13.7 % (11.5-14.5) 03/15/18 06:00 Plt Count 322 10^3/uL (120.0-450.0) 03/15/18 06:00 MPV 10.7 fl (7.0-11.0) 03/15/18 06:00 Sodium 138 mmol/L (132-148) 03/15/18 06:00 Potassium 3.9 mmol/L (3.6-5.0) 03/15/18 06:00 Chloride 106 mmol/L (98-107) 03/15/18 06:00 Carbon Dioxide 28 mmol/L (21-33) 03/15/18 06:00 Anion Gap 7 (10-20) L 03/15/18 06:00 BUN 17 mg/dL (7-21) 03/15/18 06:00 Creatinine 0.9 mg/dl (0.8-1.5) 03/15/18 06:00 Est GFR ( Amer) > 60 03/15/18 06:00 Est GFR (Non-Af Amer) > 60 03/15/18 06:00 POC Glucose (mg/dL) 171 mg/dL (65-110) H 03/15/18 12:04 Random Glucose 139 mg/dL (70-110) H 03/15/18 06:00 Calcium 9.1 mg/dL (8.4-10.5) 03/15/18 06:00 Total Bilirubin 0.4 mg/dL (0.2-1.3) 03/15/18 06:00 AST 24 U/L (17-59) 03/15/18 06:00 ALT 29 U/L (7-56) 03/15/18 06:00 Alkaline Phosphatase 87 U/L (38-126) 03/15/18 06:00 Total Protein 6.4 g/dL (5.8-8.3) 03/15/18 06:00 Albumin 3.7 g/dL (3.0-4.8) 03/15/18 06:00 Globulin 2.7 gm/dL 03/15/18 06:00 Albumin/Globulin Ratio 1.3 (1.1-1.8) 03/15/18 06:00 Attending/Attestation - Attestation I have personally seen and examined this patient.: Yes I have fully participated in the care of the patient.: Yes I have reviewed all pertinent clinical information, including history, physical exam and plan: Yes Notes (Text): 03/15/18 15:44 Medical record note made by the resident after discussion with my direction and input after the patient was personally seen and examined by me. I have reviewed the chart and agree that the record accurately reflects by personal performance of the history, physical exam, data review, and medical decision-making, in the course for the patient. I have also personally directed the plan of care. 73 year old male with past medical history of hypertension, AF on oral anticoagulation with Apixiban, , hyperthyroidism , IDDM was admitted with vertigo associated with standing .CT head was negative.There was no focal deficit.Patient symptoms were likely due to orthostatic hypotension. Patient symptoms has improved.He was evaluated by Physical therapy and was cleared for discharge.He is ambulatory at the time of discharge. Management plan was discussed in detail with patient and . Education was provided.
[2018-03-15 14:42] VITALS: BP 98/63; RESP 17; TEMP 98.5
[2018-03-15 15:00] VITALS: PULSE 70
== END 2018-03-15 14:50 | disposition home or self-care (01) ==
LOC: ED 14:06 → ERH 14:36 → 2RSO 16:20
PROVIDERS: ADMIT Internal Medicine; ATTEND Internal Medicine
DX: I95.1 Orthostatic hypotension (principal); R42 Dizziness and giddiness; E05.90 Thyrotoxicosis, unspecified without thyrotoxic crisis or storm; I10 Essential (primary) hypertension; I48.91 Unspecified atrial fibrillation; E11.9 Type 2 diabetes mellitus without complications; J43.9 Emphysema, unspecified; G47.30 Sleep apnea, unspecified; Z87.891 Personal history of nicotine dependence; Z79.4 Long term (current) use of insulin; Z95.5 Presence of coronary angioplasty implant and graft; Z79.01 Long term (current) use of anticoagulants
CPT/HCPCS: 36415; 80053; 82948; 85027; 97116; 97161; 99285; G0378; G8978; G8979; G8980; J1644; J7030